=== PATIENT | male | born 1980 | race Caucasian/White ===

== ENCOUNTER 2018-08-24 13:49 | Inpatient (IN) | payer SELFPAY ==
[~2018-08-24] VITALS: Ht 182.9 cm; Wt 132.0 kg
[2018-08-24 13:53] VITALS: Ht 182.9 cm; Wt 132.0 kg
[2018-08-24 14:47] LABS: BASOPHIL % 0.3 % (0-2); PLATELET COUNT 164 x10^3mcL (130-400); RED CELL DISTRIBUTION WIDTH 13.1 % (11.5-14.5)
[2018-08-24 14:50] LABS: CALCIUM 8.6 mg/dL (8.5-10.1); CARBON DIOXIDE 24.7 mmol/L (21-32); CHLORIDE SERUM 104 mmol/L (98-107); CREATININE SERUM 1.7 mg/dL (0.7-1.3); GFR1 48 mL/min; GLUCOSE SERUM 106 mg/dL (74-106); SODIUM SERUM 136 mmol/L (136-145)
[2018-08-24 14:55] LABS: ALKALINE PHOSPHATASE 83 U/L (46-116); ALT/SGPT 27 U/L (16-63); AST/SGOT 22 U/L (15-37); BILIRUBIN TOTAL 0.6 mg/dL (0.20-1.00); CHOLESTEROL 163 mg/dL (<200); TOTAL PROTEIN, SERUM 7.3 g/dL (6.4-8.2)
[2018-08-24 16:21] LABS: microscopic required? YES; urine erythrocyte TRACE (NEGATIVE)
[2018-08-24 16:28] LABS: AMPHETAMINE QUAL UR NONE DETECTED (See below)
[2018-08-24 16:54] LABS: MAGNESIUM 2.1 mg/dL (1.8-2.4); PHOSPHOROUS 2.9 mg/dL (2.5-4.9)
[2018-08-24 17:00] LABS: T3 TOTAL 1.63 ng/mL
[2018-08-24 17:03] LABS: FREE T4 0.94 ng/dL (0.76-1.46); FREE THYROXINE INDEX 2.3 ug/dL (1.4-4.5); T4(THYROXINE) 7.5 ug/dL (4.7-13.3)
[2018-08-24 17:24] VITALS: BP 181/119
[2018-08-24 18:27] VITALS: BP 190/125
[2018-08-24 20:18] VITALS: BP 149/84
[2018-08-25] VITALS (7 sets, daily range): BP systolic 146–208; BP diastolic 82–121
[2018-08-25 07:02] LABS: CALCIUM 8.3 mg/dL (8.5-10.1); CARBON DIOXIDE 27.8 mmol/L (21-32); CHLORIDE SERUM 105 mmol/L (98-107); CREATININE SERUM 1.5 mg/dL (0.7-1.3); GFR1 55 mL/min; GLUCOSE SERUM 93 mg/dL (74-106); MAGNESIUM 2.2 mg/dL (1.8-2.4); PHOSPHOROUS 3.8 mg/dL (2.5-4.9); POTASSIUM SERUM 3.9 mmol/L (3.5-5.1); SODIUM SERUM 138 mmol/L (136-145)
[2018-08-25 08:09] LABS: BASOPHIL % 0.5 % (0-2); PLATELET COUNT 150 x10^3mcL (130-400); RED CELL DISTRIBUTION WIDTH 12.9 % (11.5-14.5)
[2018-08-26] VITALS: BP 152/93
[2018-08-26 05:50] VITALS: BP 152/98; BP 90/61
[2018-08-26 06:08] VITALS: BP 130/65
[2018-08-26 06:26] LABS: CALCIUM 8.7 mg/dL (8.5-10.1); CARBON DIOXIDE 27.6 mmol/L (21-32); CREATININE SERUM 1.5 mg/dL (0.7-1.3); MAGNESIUM 2.3 mg/dL (1.8-2.4); PHOSPHOROUS 3.3 mg/dL (2.5-4.9); POTASSIUM SERUM 4.1 mmol/L (3.5-5.1)
[2018-08-26 06:46] LABS: BASOPHIL % 0.2 % (0-2); PLATELET COUNT 156 x10^3mcL (130-400); RED CELL DISTRIBUTION WIDTH 12.6 % (11.5-14.5)
[2018-08-26 08:52] VITALS: BP 148/80
[2018-08-26 10:46] VITALS: BP 148/80
[2018-08-26] MEDS ORDERED: LIPI10 PO (12:05)
[2018-08-26] MEDS ORDERED: ECO81 PO (12:06)
[2018-08-26] MEDS ORDERED: ZES20 PO (12:08)
[2018-08-26] MEDS ORDERED: ADA30 PO (12:09)
== END 2018-08-26 14:00 | disposition home or self-care (01) | DRG 77 ==
LOC: ED 13:49 → DU 16:11
PROVIDERS: Internal Medicine; Specialist
DX: I67.4 Hypertensive encephalopathy (principal); N17.0 Acute kidney failure with tubular necrosis; I42.0 Dilated cardiomyopathy; I10 Essential (primary) hypertension; F10.10 Alcohol abuse, uncomplicated; F14.10 Cocaine abuse, uncomplicated; G47.33 Obstructive sleep apnea (adult) (pediatric); I16.0 Hypertensive urgency; Y90.9 Presence of alcohol in blood, level not specified; E66.9 Obesity, unspecified; Z68.39 Body mass index [BMI] 39.0-39.9, adult; Z71.3 Dietary counseling and surveillance; Z71.41 Alcohol abuse counseling and surveillance of alcoholic; Z91.19 Patient's noncompliance with other medical treatment and regimen; Z71.51 Drug abuse counseling and surveillance of drug abuser; Z79.899 Other long term (current) drug therapy
CPT/HCPCS: 83880; 84439; G0480; J0360; J3490; J7030; Q0092